=== PATIENT | male | born 1990 | race Caucasian/White ===

== ENCOUNTER 2018-04-13 07:04 | Emergency (ER) | payer OTHER ==
[~2018-04-13] VITALS: Ht 177.8 cm; Wt 95.5 kg
[2018-04-13] MEDS ORDERED: OMEP40CA2 PO (07:12)
[2018-04-13] MEDS ORDERED: RANI1TAB6 PO (07:12)
[2018-04-13] MEDS ORDERED: GI COCKTAIL 50ML BTL(HYOSCYAMINE/MAALOX/LIDOCAINE VISCOUS)(1:3:1) PO ONE (08:15)
--- NOTE | 2018-04-13 08:27 | REP ---
Chest x-ray: Two views. History: Duct and cough. History of gastroesophageal reflux disease. . Comparison study: None . Findings: The lungs are well inflated and free of infiltrate. The pleural angles are sharp. The heart size is normal. Pulmonary vasculature is not increased. No significant bony abnormality is seen. Impression: Negative chest x-ray. Electronically Signed by Lisandro Cantu MD 04/13/2018 08:18 A
[2018-04-13] MEDS ORDERED: BACL5TAB2 PO (08:45)
[2018-04-13 08:48] VITALS: BP 133/78
== END 2018-04-13 09:01 | disposition home or self-care (01) ==
LOC: M ED 07:04
DX: R05 Cough (principal); K21.9 Gastro-esophageal reflux disease without esophagitis; F17.200 Nicotine dependence, unspecified, uncomplicated; Z79.899 Other long term (current) drug therapy